=== PATIENT | female | born 1950 | race Caucasian/White ===

== ENCOUNTER 2018-12-20 06:18 | Day surgery (SDC) | payer OTHER ==
[~2018-12-20] VITALS: Ht 170.2 cm; Wt 80.0 kg
[~2018-12-20 06:18] MED LIST: ELIQUIS5 MG PO; LISI20 PO; METO25ER PO
== END 2018-12-20 22:59 | disposition home or self-care (01) ==
LOC: MHTC 06:18
DX: I48.0 Paroxysmal atrial fibrillation (principal); I10 Essential (primary) hypertension; E66.9 Obesity, unspecified; Z79.01 Long term (current) use of anticoagulants; Z79.899 Other long term (current) drug therapy; Z88.1 Allergy status to other antibiotic agents; Z68.28 Body mass index [BMI] 28.0-28.9, adult
CPT/HCPCS: 92960; 93005; 93010; 93306; 93312; 93325; 99152; J2250; J3010; J7030

== ENCOUNTER 2020-09-09 04:53 | Inpatient (IN) | payer OTHER, MEDICARE, SELFPAY ==
[~2020-09-09] VITALS: Ht 167.6 cm; Wt 77.1 kg
[2020-09-09 05:33] LABS: BASOPHILS ABSOLUTE AUTO 0.06 K/mm3 (0.00-0.23); BASOPHILS PERCENT AUTO 0 % (0-2); EOSINOPHILS ABSOLUTE AUTO 0.02 K/mm3 (0.00-0.68); EOSINOPHILS PERCENT AUTO 0 % (0-6); Hemoglobin 14.3 g/dL (11.5-16.0); IMMATURE GRAN ABSOLUTE AUTO 0.09 K/mm3 (0.00-0.10); IMMATURE GRAN PERCENT AUTO 1 % (0-1); LYMPHOCYTES ABSOLUTE AUTO 1.02 K/mm3 (0.84-5.20); LYMPHOCYTES PERCENT AUTO 8 % (21-46); MONOCYTES ABSOLUTE AUTO 0.67 K/mm3 (0.16-1.47); MONOCYTES PERCENT AUTO 5 % (4-13); Mean Corpuscular HGB 31.5 pg (26.0-34.0); Mean Corpuscular HGB Conc 32.5 g/dL (31.5-36.5); Mean Corpuscular Volume 97 fL (80-100); Mean Platelet Volume 9.9 fL (9.1-12.4); NEUTROPHILS ABSOLUTE AUTO 11.49 K/mm3 (1.96-9.15); NEUTROPHILS PERCENT AUTO 86 % (41-73); Platelet Count 296 K/mm3 (150-400); RDW Coefficient Variation 12.5 % (11.7-14.2); RDW Standard Deviation 44.7 fL (35.1-46.3); Red Blood Cell Count 4.54 M/mm3 (3.80-5.20); White Blood Cell Count 13.35 K/mm3 (4.00-11.30)
[2020-09-09 05:56] LABS: Alanine Aminotransfer (ALT/SGP 23 U/L (12-78); Albumin, Blood 3.4 g/dL (3.4-5.0); Albumin/Globulin Ratio 0.9 (0.8-1.8); Alk Phos 109 U/L (50-136); Anion Gap 7 mmol/L (6-16); Aspartate Aminotrans (AST/SGOT 15 U/L (12-37); Bilirubin, Total 0.3 mg/dL (0.1-1.0); Blood Urea Nitrogen 16 mg/dL (8-24); Bun/Creatinine Ratio 20.5 (12.0-20.0); CO2, Blood 26 mmol/L (21-32); Calcium, Blood 9.1 mg/dL (8.5-10.1); Chloride, Blood 109 mmol/L (98-108); Creatinine, Blood 0.78 mg/dL (0.40-1.00); Globulin, Blood 3.8 g/dL (2.2-4.0); Glomerular Filtration Rate >60 (60-); Glucose, Blood 142 mg/dL (70-99); Potassium, Blood 4.3 mmol/L (3.5-5.5); Sodium, Blood 142 mmol/L (136-145); Total Protein, Blood 7.2 g/dL (6.4-8.2); Troponin I <0.015 ng/mL (0.000-0.040)
[2020-09-09 07:11] LABS: Source, Urine Clean Catch
[2020-09-09 07:14] LABS: Bilirubin, Urine Neg (Neg); Blood, Urine 2+ (Neg); Glucose Qualitative, Urine Neg (Neg); Ketones, Urine Neg (Neg); Leukocyte Esterase, Urine Neg (Neg); Nitrite, Urine Neg (Neg); Protein, Urine 2+ (Neg); Urobilinogen, Urine NORM (Normal)
[2020-09-09 07:24] LABS: Appearance, Urine Clear (Clear); Color, Urine Yellow (P-Yellow)
[2020-09-09 07:26] LABS: Red Blood Cells, Urine 0-2 /hpf (0-2); White Blood Cells, Urine 0-2 /hpf (0-5)
[2020-09-09 07:27] LABS: Bacteria Mod /hpf; Squamous Epithelial Cells Many /hpf (Few)
[2020-09-09 12:10] LABS: Influenza A, PCR NEGATIVE (NEGATIVE); Influenza B, PCR NEGATIVE (NEGATIVE); Resp Syncytial Virus, PCR NEGATIVE (NEGATIVE); SARS-Cov-2 (COVID-19) PCR, MMC NEGATIVE (NEGATIVE)
--- NOTE | 2020-09-09 13:19 | NUR ---
1257 arrived in room from ed via w/c. transfered into bed independently
--- NOTE | 2020-09-09 13:20 | NUR ---
1317 dr lord in room
--- NOTE | 2020-09-09 14:15 | NUR ---
NO SUICIDE RISKS
--- NOTE | 2020-09-09 16:45 | NUR ---
ASSUMED CARE OF PT, PT RESTING WELL, MEDICATED X1 FOR PAIN AND JUAN N/V. SL INFUSING IN RAC WITH NS @ 75CC HR. REPORT GIVEN TO GISSELLE ZHAO.
--- NOTE | 2020-09-09 17:11 | NUR ---
REPORT TO ROCK ZHAO
--- NOTE | 2020-09-10 02:39 | NUR ---
PER DRAFTER CIVIL (CAD), PT CONVERTED INTO AFIB AT THIS TIME WITH HR AROUND 100'S. PT DENIES DISCOMFORT OR CP, STATING "I FEEL JUST FINE." WILL CONT TO MONITOR AND NOTIFY ON COMING RN. PT HAS CALL LIGHT IN REACH WITH BED LOCKED AND IN LOWEST POSITION.
--- NOTE | 2020-09-10 03:47 | NUR ---
AFIB/HR NOTIFIED BY CREAM BEATER PT'S HR NOW 120'S. PT APPEARS ASYMPTOMATIC AND DENIES DISCOMFORT. DISCUSSED WITH WATER HAULER AND CECE FERNANDES. OKAY TO CONT TO MONITOR CLOSELY FOR CHANGES AND WILL NOTIFY DAY RN.
[2020-09-10 05:34] LABS: Hematocrit 41.2 % (33.0-51.0); Hemoglobin 13.3 g/dL (11.5-16.0); Mean Corpuscular HGB 31.1 pg (26.0-34.0); Mean Corpuscular HGB Conc 32.3 g/dL (31.5-36.5); Mean Corpuscular Volume 96 fL (80-100); Platelet Count 265 K/mm3 (150-400); RDW Coefficient Variation 13.2 % (11.7-14.2); RDW Standard Deviation 46.8 fL (35.1-46.3); Red Blood Cell Count 4.28 M/mm3 (3.80-5.20); White Blood Cell Count 15.23 K/mm3 (4.00-11.30)
[2020-09-10 05:51] LABS: Anion Gap 5 mmol/L (6-16); Blood Urea Nitrogen 10 mg/dL (8-24); CO2, Blood 27 mmol/L (21-32); Calcium, Blood 8.5 mg/dL (8.5-10.1); Chloride, Blood 110 mmol/L (98-108); Creatinine, Blood 0.91 mg/dL (0.40-1.00); Glomerular Filtration Rate >60 (60-); Glucose, Blood 110 mg/dL (70-99); Potassium, Blood 4.1 mmol/L (3.5-5.5); Sodium, Blood 142 mmol/L (136-145)
--- NOTE | 2020-09-10 08:20 | NUR ---
pt oriented to room layout up form fbp pt pt stated that had pain only over 1 day feeling better being npo prn mouth care plan for or today
--- NOTE | 2020-09-10 09:42 | NUR ---
dr valencia by to see pt
--- NOTE | 2020-09-10 11:06 | NUR ---
pt stated pain is getting worse 02/03 stated she is try to stay still fent 50 mcg given
--- NOTE | 2020-09-10 12:18 | NUR ---
pt transported via [facility] to day surg
--- NOTE | 2020-09-10 12:42 | NUR ---
History, Chart, Medications and Allergies reviewed before start of procedure. Lungs clear T/O to Auscultation. Patient confirms NPO status and agrees with scheduled surgery. Pre-Op teaching done. Pt verbalizes understanding.
--- NOTE | 2020-09-10 13:32 | NUR ---
PT NOTED TO BE IN AFIB WITH RVR RATE 81-158, MOST CONSITANTLY AT 144. DR. SPANGLER AND DR. MUNOZ ASSESSED THE PT AT DECIDED TO POSTPONE PROCEDURE UNTIL HR IS STABLE. PT STATED UNDERSTANDING.
--- NOTE | 2020-09-10 13:43 | NUR ---
dr urbano called re pt's hr per day neurosurgeon talked with day neurosurgeon pt ok to come back out to surg floor per dr urbano req pt have another iv dose of 5 mg metoprolol iv can have every 4 hr prn
--- NOTE | 2020-09-10 14:02 | NUR ---
PT TRANSFERED TO [facility] FLOOR VIA [facility] WITH CONTINUOUS MONITORINIG. REPORT GIVEN TO CECE STEWART. PT TRANSFERED SAFELY TO BED.
--- NOTE | 2020-09-10 14:09 | NUR ---
pt arrived back to room fent 50 mcg given ok to have cl diet telescope repairer called hr sr in 70's pt visiting with spouse ice chips and water given
--- NOTE | 2020-09-10 15:58 | NUR ---
discussed pt hr with her sr per regional telecommunications specialist
--- NOTE | 2020-09-10 17:20 | NUR ---
ASSUMED CARE ASSUMED CARE OF PATIENT AT 1700. TELE CONFIGURATION MANAGEMENT ADVISOR CALLED AND REPORTED PATIENT CONVERTED TO AFIB 108-140. GAVE PATIENT 5 MG IV METOPROLOL ORDERED IN EMAR. VS 5 MINUTES LATER SHOWED HR DOWN TO 60-70.
--- NOTE | 2020-09-10 19:04 | NUR ---
END OF SHIFT PATIENT INDEPENDENT IN ROOM TO BATHROOM. TOLERATING CLEAR LIQUIDS. IV FLUIDS RUNNING. PAIN CONTROLLED WITH 50 MG FENTAYL Q4. Q4 PRN IV METOPROLOL FOR AFIB. TELE IN PLACE. PLAN FOR SURGERY FOR CHOLECYSTITIS 09/11/2020 AFTER AM PO METOPROLOL. REPORT GIVEN TO ETL SOFTWARE ENGINEER RN.
--- NOTE | 2020-09-10 22:19 | NUR ---
ASSUMED CARE AT 1900. PT A/O X4, IND IN ROOM. TELE ON. PER INSPECTOR FINAL ASSEMBLY ELECTRICAL, PT WENT INTO A-FIB AROUND 2030 BUT HR WAS BETWEEN 99-115, WHICH IS BELOW PERAMETERS TO GIVE METOPROLOL. WCTM. PT RESTING AT THIS TIME, CALL LIGHT IN REACH.
[2020-09-11 04:10] LABS: BASOPHILS ABSOLUTE AUTO 0.06 K/mm3 (0.00-0.23); BASOPHILS PERCENT AUTO 0 % (0-2); EOSINOPHILS ABSOLUTE AUTO 0.11 K/mm3 (0.00-0.68); EOSINOPHILS PERCENT AUTO 1 % (0-6); Hematocrit 39.5 % (33.0-51.0); Hemoglobin 12.7 g/dL (11.5-16.0); IMMATURE GRAN PERCENT AUTO 1 % (0-1); LYMPHOCYTES ABSOLUTE AUTO 1.27 K/mm3 (0.84-5.20); LYMPHOCYTES PERCENT AUTO 9 % (21-46); MONOCYTES ABSOLUTE AUTO 1.74 K/mm3 (0.16-1.47); MONOCYTES PERCENT AUTO 12 % (4-13); Mean Corpuscular HGB 31.5 pg (26.0-34.0); Mean Corpuscular HGB Conc 32.2 g/dL (31.5-36.5); Mean Corpuscular Volume 98 fL (80-100); Mean Platelet Volume 9.9 fL (9.1-12.4); NEUTROPHILS PERCENT AUTO 78 % (41-73); Platelet Count 242 K/mm3 (150-400); RDW Coefficient Variation 13.2 % (11.7-14.2); RDW Standard Deviation 48.1 fL (35.1-46.3); Red Blood Cell Count 4.03 M/mm3 (3.80-5.20); White Blood Cell Count 14.68 K/mm3 (4.00-11.30)
--- NOTE | 2020-09-11 04:47 | NUR ---
SHIFT SUMMARY PT HAS BEEN A/O X4, IND IN ROOM. PT HAS BEEN NPO SINCE MIDNIGHT FOR SURGERY TODAY. TELE ON OVERNIGHT. PER BRICK BAKER, PT DID GO INTO A-FIB HOWEVER RATE WAS NOT HIGH ENOUGH FOR IV METOPROLOL. PT CURRENTLY IS IN SINUS RHYTHM WITH PAC'S IN 80'S PER TECH. PAIN MANAGED WITH 50 FENTANYL ABOUT Q4 OVERNIGHT. IV FLUIDS WITH ABX INFUSING OVERNIGHT PER ORDERS. PT RESTING IN BED AT THIS TIME, CALL LIGHT IN REACH.
--- NOTE | 2020-09-11 14:15 | NUR ---
TO DAY SURGERY PER CART
--- NOTE | 2020-09-11 17:10 | NUR ---
09/11/20 1710 CARLAROBBI PT RECEIVED SCHEDULED ANTIOBIOTICS PRUIOR TO PROCEDURE, DR ARNETT AWARE, NO NEW ORDERS
--- NOTE | 2020-09-11 20:46 | NUR ---
RN NOTIFIED BY VOCAL MUSIC INSTRUCTOR THAT PT WAS IN A FIB AT 126-130. IV METOPROLOL GIVEN.
--- NOTE | 2020-09-12 01:03 | NUR ---
PER GAS TURBINE POWERPLANT MECHANIC PT HAS BEEN IN A FIB AND CONVERTED BACK TO SINUS RHYTHM AT 0100.
[2020-09-12] MEDS ORDERED: Flecainide Acet50 MG PO (03:25)
[2020-09-12 04:06] LABS: Hematocrit 41.6 % (33.0-51.0); Hemoglobin 13.1 g/dL (11.5-16.0); Mean Corpuscular HGB 31.1 pg (26.0-34.0); Mean Corpuscular HGB Conc 31.5 g/dL (31.5-36.5); Mean Corpuscular Volume 99 fL (80-100); Mean Platelet Volume 10.1 fL (9.1-12.4); Platelet Count 288 K/mm3 (150-400); RDW Standard Deviation 47.2 fL (35.1-46.3); Red Blood Cell Count 4.21 M/mm3 (3.80-5.20); White Blood Cell Count 10.81 K/mm3 (4.00-11.30)
[2020-09-12 04:27] LABS: Alanine Aminotransfer (ALT/SGP 36 U/L (12-78); Albumin, Blood 2.4 g/dL (3.4-5.0); Albumin/Globulin Ratio 0.6 (0.8-1.8); Alk Phos 84 U/L (50-136); Anion Gap 7 mmol/L (6-16); Aspartate Aminotrans (AST/SGOT 40 U/L (12-37); Bilirubin, Total 0.5 mg/dL (0.1-1.0); Blood Urea Nitrogen 13 mg/dL (8-24); Bun/Creatinine Ratio 20.2 (12.0-20.0); CO2, Blood 24 mmol/L (21-32); Calcium, Blood 8.5 mg/dL (8.5-10.1); Chloride, Blood 112 mmol/L (98-108); Creatinine, Blood 0.64 mg/dL (0.40-1.00); Globulin, Blood 4.1 g/dL (2.2-4.0); Glomerular Filtration Rate >60 (60-); Glucose, Blood 150 mg/dL (70-99); Potassium, Blood 3.5 mmol/L (3.5-5.5); Sodium, Blood 143 mmol/L (136-145); Total Protein, Blood 6.5 g/dL (6.4-8.2)
--- NOTE | 2020-09-12 04:43 | NUR ---
SHIFT SUMMARY PT HAS BEEN A/O X4. SBA FOR CORDS/LINES/SCDS. TOLERATING CLEAR LIQUIDS W/O NAUSEA. PT REPORTS PAIN IS MUCH BETTER POST-OP THAN PRE-OP. PT HAS BEEN GOING IN-AND-OUT OF A-FIB OVERNIGHT PER TELE. HAS BEEN MEDICATED WITH IV LOPRESSOR X2. PT IS RESTING IN BED AT THIS TIME, CALL LIGHT IN REACH.
--- NOTE | 2020-09-12 15:38 | NUR ---
1415 SPOKE WITH HSE MANAGER. SINCE 0800 PT HAS BEEN IN SR WITH OCC PAC AND PVC RATE HAS REMAINED BELOW 100
[2020-09-12] MEDS ORDERED: HYDR1TAB94 PO (15:52)
[2020-09-12] MEDS ORDERED: DOCU100 PO (16:45)
--- NOTE | 2020-09-12 17:02 | NUR ---
1137 DISCHARGE DISCHARGED TO HOME WITH HER . PT AMBULATING, VOIDING, JONES PO FOOD AND FLUIDS WITHOUT NAUSEA. PT REPORTS PAIN IS WELL CONTROLLED
== END 2020-09-12 16:55 | disposition home or self-care (01) | DRG 419 ==
LOC: ER 04:53 → ERHOLD 08:55 → SURS 08:55 → BC 12:56 → SURS 09-10 07:45
PROVIDERS: Emergency Medicine; Family Medicine; Nurse Practitioner Acute Care; Surgery; ADMIT Family Medicine
PROC: BF532Z0 Other Imaging of Gallbladder and Bile Ducts using Fluorescing Agent, Intraoperative (ICD-10-PCS; 2020-09-11)
PROC: 0FT44ZZ Resection of Gallbladder, Percutaneous Endoscopic Approach (ICD-10-PCS; principal; 2020-09-11 15:00)
DX: K80.00 Calculus of gallbladder with acute cholecystitis without obstruction (principal); I11.0 Hypertensive heart disease with heart failure; I48.0 Paroxysmal atrial fibrillation; Z20.822 Contact with and (suspected) exposure to COVID-19; Z79.01 Long term (current) use of anticoagulants
CPT/HCPCS: 0241U; 36415; 74300; 76705; 80048; 80053; 81001; 83690; 83735; 84443; 84484; 85025; 85027; 87086; 88304; 93005; 93010; 96365; 96375; 96376; 99285-25; A9270; C1729; J1100; J1885; J2250; J2270; J2370; J2405; J2543; J2704; J3010; J7030; J7120